=== PATIENT | male | born 1995 | race Caucasian/White ===

== ENCOUNTER 2018-09-25 22:17 | Emergency (ER) | payer BC ==
[~2018-09-25] VITALS: Ht 188 cm; Wt 155.3 kg
[~2018-09-25 22:17] MED LIST: ACET500C5 PO
[2018-09-25 22:28] VITALS: Ht 188 cm; Wt 155.3 kg
[2018-09-25] MEDS ORDERED: LIDOCAINE 2%/EPI MPF (SDV) 20 ML VIAL INJ STA (22:56)
[2018-09-25] MEDS ORDERED: DIPHTH/TET/ACEL PERTUSS (ADULT) 0.5 ML VIAL IM* ONE (23:00)
[2018-09-26 00:09] VITALS: BP 113/61; PULSE 87; RESP 18
--- NOTE | 2018-09-26 01:33 | ERD ---
ER Documentation Chief Complaint Chief Complaint L index finger lac w kitchen knife tonight; oozing blood HPI Patient 23-year-old male presented to ED for a laceration to his left index fin rosana. Patient states he cut his finger while he was cutting food with a knife. Patient denies any past medical history and states he does not know when his last tetanus shot was. Patient states the pain is very mild at this time. Patient is most concerned because he is leaving for vacation in 2 days wants to make sure his fingers okay. ROS All systems reviewed and are negative except as per history of present illness. Medications Home Meds Active Scripts Acetaminophen* (Tylophen*) 500 Mg Capsule, 1 CAP PO Q6H PRN for PAIN AND OR ELEVATED TEMP, #20 CAP Prov:HALEY DICKEY PA-C 09/25/18 Allergies Allergies: Coded Allergies: No Known Allergy (Unverified , 09/25/18) PMhx/Soc Medical and Surgical Hx: pt denies Medical Hx, pt denies Surgical Hx Hx Alcohol Use: Yes (SOCIALLY) Smoking Status: Never smoker FmHx Family History: No diabetes, No coronary disease, No other Physical Exam Vitals Vital Signs Date Temp Pulse Resp B/P (MAP) Pulse Ox O2 O2 Flow FiO2 Time Delivery Rate 09/26/18 98.6 87 18 113/61 99 Room Air 00:09 (78) 09/25/18 99.2 115 16 146/66 99 22:28 (92) Physical Exam GENERAL: Moderate Distress CHEST: Clear to auscultation bilaterally. There are no rales, wheezes or rhonchi. HEART: Regular rate and rhythm. No murmurs, clicks, rubs or gallops. EXTREMITIES: 2 cm laceration to the patient's left index finger. The wound is very superficial and does not extend to the muscle ligaments tendons. Patient has good pulse motor sensation in the extremity there is no pain on palpation no deformity. The patient cut his finger superficially with a knife. Results 24 hrs Current Medications Medications Dose Sig/Faheem Start Time Status Last (Trade) Ordered Route PRN Stop Time Admin Dose Reason Admin Diphtheria/ 0.5 ml ONCE ONCE 09/25/18 DC 09/25/18 Tetanus/Acell IM* 23:00 09/25/18 23:03 Pertussis 23:01 (Adacel) Lidocaine/ 20 ml ONCE STAT 09/25/18 DC Epinephrine INJ 22:56 09/25/18 (Xylocaine 22:58 2%/ Epi Mpf(Sdv)) Procedures/MDM ED course: The patient was stable throughout the ED course. The patient and/or family informed of laboratory and diagnostic imaging results throughout the ED course. Procedures: LACERATION: The patient was verbally consented prior to procedure. Patient was explained the risks, benefits and alternatives to this procedure. Location: Left index finger Length: 2 cm cm Anesthesia: local 1% lidocaine, 5 cc Inspection: The wound was thoroughly explored and no foreign bodies, deep tissue , tendon or structural injuries were noted. Repair: The area was prepared and draped in the usual sterile manner with the wound exposed. 3 sutures sutures were placed with good wound closure and wound approximation. Bleeding was minimal. The patient tolerated the procedure well with no complications. The wound was dressed with bacitracin and sterile gauze. The patient was neurovascularly intact post-procedure. Post-procedural wound care was discussed with the patient. The patient was advised that if they develop fever, chills, discharge or discomfort to return to the ER immediately. I discussed with the patient the importance of having a wound check in 2 days and the importance of having the sutures removed within the appropriate time. SPLINT APPLICATION: The patient was verbally consented at bedside prior to splint application. Patient was explained the risks, benefits and alternatives to this procedure. The patient was neurovascularly intact prior to and status post application of the splint. The patient tolerated the procedure well with no complications. Splint type: Metal finger splint Extremity: Left index finger Indication: Sutures in the distal aspect of finger to prevent the sutures from Kinzers open I discussed with the patient/family that at anytime if the splint becomes too constricted or if they have loss of sensation, or unable to move any limbs distal to the splint, develop fever, or any discomfort that they should eturn to the ER immdiatly. I educated the patient on risk of compartment syndrome with splint applications. Medications given in ER: Tdap Patient tolerated medication well with no adverse reactions. Patient reported improvement in pain. Medical decision making: Patient 23-year-old male presented to ED for laceration to left fingertip. Patient remained neurovascular intact pre-and post suture and pre-and post splint application. The patient's injury was very superficial and there is no need for x-ray there is no signs of foreign body exposure the patient did not remove his last tetanus vaccination was so it was updated while in the ED. Patient was offered medication for pain but refused. At this time I have low suspicion for fracture, dislocation, neurovascular injury, compartment syndrome. Advised patient that he needs to come back in 2 days for wound check and have the sutures removed in 7 to 10 days. All questions were answered upon discharge patient is agreement to treatment plan Prescription for home: Acetaminophen I have discussed with the patient proper use and common side effects to expert with the medication . I advised the patient/family to speak with the pharmacist dispensing the medication to be advised of any potential drug interactions with other medication or supplements they may be taking. Discharge: At this time, patient is stable for discharge and outpatient management. I have instructed the patient to follow-up with his\her primary care physician in 1 to 2 days. I have discussed with the patient the possibility of needing to see a specialist for further work-up and imaging studies if symptoms persist. I have instructed the patient to promptly return to the ER for any new or worsening symptoms including increased pain, fever, nausea, vomiting, weakness or LOC. The patient and\or family expressed understanding of and agreement with this plan. All questions were answered. Home care instructions were provided. Disclaimer: Inadvertent spelling and grammatical errors are likely due to EHR\dictation software use and do not reflect on the overall quality of patient care. Also, please note that the electronic time recorded on the note does not necessarily reflect the actual time of the patient encounter. Departure Diagnosis: Primary Impression: Laceration Condition: Stable Patient Instructions: Laceration, Hand Referrals: [facility] YOU HAVE RECEIVED A MEDICAL SCREENING EXAM AND THE RESULTS INDICATE THAT YOU DO NOT HAVE A CONDITION THAT REQUIRES URGENT TREATMENT IN THE EMERGENCY DEPARTMENT. FURTHER EVALUATION AND TREATMENT OF YOUR CONDITION CAN WAIT UNTIL YOU ARE SEEN IN YOUR DOCTORS OFFICE WITHIN THE NEXT 1-2 DAYS. IT IS YOUR RESPONSIBILITY TO MAKE AN APPOINTMENT FOR FOLOW-UP CARE. IF YOU HAVE A PRIMARY DOCTOR --you should call your primary doctor and schedule an appointment IF YOU DO NOT HAVE A PRIMARY DOCTOR YOU CAN CALL OUR PHYSICIAN REFERRAL HOTLINE AT IF YOU CAN NOT AFFORD TO SEE A PHYSICIAN YOU CAN CHOSE FROM THE FOLLOWING [facility] [address] [facility] [address] [facility] [facility] [address] [facility] [address] [facility] [address] [facility]. [facility] [address] [facility]. [facility] YOU HAVE RECEIVED A MEDICAL SCREENING EXAM AND THE RESULTS INDICATE THAT YOU DO NOT HAVE A CONDITION THAT REQUIRES URGENT TREATMENT IN THE EMERGENCY DEPARTMENT. FURTHER EVALUATION AND TREATMENT OF YOUR CONDITION CAN WAIT UNTIL YOU ARE SEEN IN YOUR DOCTORS OFFICE WITHIN THE NEXT 1-2 DAYS. IT IS YOUR RESPONSIBILITY TO MAKE AN APPOINTMENT FOR FOLOW-UP CARE. IF YOU HAVE A PRIMARY DOCTOR --you should call your primary doctor and schedule and appointment IF YOU DO NOT HAVE A PRIMARY DOCTOR YOU CAN CALL OUR PHYSICIAN REFERRAL HOTLINE AT . IF YOU CAN NOT AFFORD TO SEE A PHYSICIAN YOU CAN CHOSE FROM THE FOLLOWING [facility] INSTITUTIONS: [facility] [address] [place] [address] [facility] [address] [place] [address] [facility] [address] [place] [address] [facility] Additional Instructions: Call your primary care doctor TOMORROW for an appointment during the next 1-2 days.See the doctor sooner or return here if your condition worsens before your appointment time. Follow up in 2 days in your clinic for wound check. Follow up with your physician to remove the stitches:For Face wounds 5-7 days.For Elsewhere on the body 7-10 days. HALEY DICKEY PA-C Sep 26, 2018 01:33
== END 2018-09-26 00:10 | disposition home or self-care (01) ==
LOC: FTE 22:17
DX: S61.211A Laceration without foreign body of left index finger without damage to nail, initial encounter (principal); W26.0XXA Contact with knife, initial encounter; Y92.9 Unspecified place or not applicable; Z23 Encounter for immunization
CPT/HCPCS: 90471; 90715